=== PATIENT | male | born 1995 | race Caucasian/White ===

== ENCOUNTER 2019-08-26 12:46 | Emergency (ER) | payer BC, OTHER ==
[~2019-08-26] VITALS: Ht 182.9 cm; Wt 79.8 kg
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
--- NOTE | 2019-08-26 12:55 | NUR ---
AT BEDSIDE FOR EVAL.
--- NOTE | 2019-08-26 13:00 | NUR ---
IV LINE ESTABLISHED BLOOD DRAWN AND SENT TO LAB.
[2019-08-26] MEDS ORDERED: LIDOCAINE 1%-EPI 1:100,000 20 ML VIAL ONE (13:01)
[2019-08-26] MEDS ORDERED: FENTANYL PF 100MCG/2ML AMPUL ONE ×2 (13:07→15:17)
--- NOTE | 2019-08-26 13:20 | NUR ---
[employer]PERVIS[employer] AT BEDSIDE FOR XRAY.
[2019-08-26] MEDS ORDERED: FENTANYL PF 100MCG/2ML AMPUL IV ONE ×2 (13:30→16:00)
--- NOTE | 2019-08-26 16:00 | NUR ---
SUTURING DONE BY .
[2019-08-26 16:20] VITALS: BP 122/71
--- NOTE | 2019-08-26 16:20 | NUR ---
Patient discharged to home in stable condition. Written and verbal after care instructions given. Patient verbalizes understanding of instruction. IV removed. Catheter intact and site benign. Pressure and 4x4 applied to site. No bleeding noted.
== END 2019-08-26 16:21 | disposition home or self-care (01) ==
LOC: ER 12:46
DX: S81.811A Laceration without foreign body, right lower leg, initial encounter (principal); F17.200 Nicotine dependence, unspecified, uncomplicated; Z60.2 Problems related to living alone; W01.0XXA Fall on same level from slipping, tripping and stumbling without subsequent striking against object, initial encounter; Y93.39 Activity, other involving climbing, rappelling and jumping off; Y92.34 Swimming pool (public) as the place of occurrence of the external cause; Y99.8 Other external cause status
CPT/HCPCS: 12005; 73590; 73610; 96374; 96376; 99284; A6403; J3010 ×2; J3490

== ENCOUNTER 2020-01-15 13:03 | Emergency (ER) | payer BC, OTHER ==
[~2020-01-15] VITALS: Ht 177.8 cm; Wt 74.8 kg
[2020-01-15] MEDS ORDERED: NALOXONE PREFILLED SYRINGE 2 MG/2 ML SYRINGE ONE (13:17)
[2020-01-15] MEDS ORDERED: NALOXONE HCL 0.4 MG/ML AMPUL ONE ×3 (13:30→14:32)
[2020-01-15] MEDS: NALOXONE HCL 0.4 MG/ML AMPUL IV ONE ×5 (13:42→14:15)
--- NOTE | 2020-01-15 13:43 | NUR ---
[employer] AT BEDSIDE
--- NOTE | 2020-01-15 14:00 | NUR ---
bib ra c/o overdose on xanax and fentanyl. Patient a/ox1, sleepy but arousable to stimuli. Attached to the vehicle monitor technician. Belongings set aside. Iv line established.
--- NOTE | 2020-01-15 14:42 | NUR ---
Patient given a total of 2mg of Narcan in increments x5 mins. After 5th dose patient is arousable to painful stimuli. Vitals stable.
[2020-01-15 15:01] LABS: BASOPHILS % (AUTO) 0.6 % (0.0-2.0); EOSINOPHILS % (AUTO) 2.7 % (0.0-6.0); HEMATOCRIT 41 % (39-51); LYMPHOCYTES # (AUTO) 1.9 /CMM (0.8-4.8); LYMPHOCYTES % (AUTO) 30.3 % (20.0-44.0); MEAN CORPUSCULAR HGB CONC 34 g/dl (31.0-36.0); MEAN CORPUSCULAR VOLUME 92 fL (80-96); MONOCYTES # (AUTO) 0.7 /CMM (0.1-1.30); MONOCYTES % (AUTO) 11.4 % (2.0-12.0); NEUTROPHILS # (AUTO) 3.5 /CMM (1.8-8.9); PLATELET COUNT (AUTO) 210 /CMM (150-450); RED BLOOD CELL COUNT(AUTO) 4.51 MIL/uL (4.5-6.0); WHITE BLOOD COUNT (AUTO) 6.4 K/uL (4.3-11.0)
[2020-01-15] MEDS ORDERED: NALT50TA PO (15:01)
[2020-01-15] MEDS ORDERED: GABA800T11 PO (15:01)
[2020-01-15] MEDS ORDERED: PROP20TA19 PO (15:01)
[2020-01-15 15:18] LABS: CALCIUM, SERUM 8.6 mg/dL (8.5-10.1); CARBON DIOXIDE 27 mmol/L (21-32); CHLORIDE 100 mmol/L (98-107); GLUCOSE 86 mg/dL (74-106); POTASSIUM 3.4 mmol/L (3.5-5.1); SODIUM SERUM 135 mmol/L (136-145); UREA NITROGEN, BLOOD 6 mg/dL (7-18)
[2020-01-15 15:21] LABS: APPEARANCE,URINE CLEAR (CLEAR); BILIRUBIN,URINE NEGATIVE (NEGATIVE); BLOOD, URINE NEGATIVE Ery/uL (NEGATIVE); COLOR,URINE YELLOW (YELLOW); KETONES,URINE NEGATIVE (NEGATIVE); LEUKOCYTE ESTERASE ,URINE NEGATIVE (NEGATIVE); NITRITE, URINE NEGATIVE (NEGATIVE); PROTEIN,URINE NEGATIVE (NEGATIVE); UGLUCOSE NEGATIVE (NEGATIVE); UROBILINOGEN,URINE 0.2 EU/dL (0.2)
[2020-01-15 15:23] LABS: ALANINE AMINOTRANSFERASE 21 U/L (12-78); ALBUMIN 3.9 g/dL (3.4-5.0); ALCOHOL, BLOOD < 3 mg/dL (0-0); ALKALINE PHOSPHATASE 51 U/L (46-116); ASPARTATE AMINOTRANSFERASE 21 U/L (15-37); BILIRUBIN,DIRECT 0.1 mg/dL (0.0-0.2); BILIRUBIN,TOTAL 0.6 mg/dL (0.2-1.0); TOTAL PROTEIN, SERUM 6.9 g/dL (6.4-8.2)
--- NOTE | 2020-01-15 17:13 | NUR ---
PATIENT ASLEEP, EASILY AROUSABLE. NO DISTRESS NOTED. VITALS STABLE.
--- NOTE | 2020-01-15 18:06 | NUR ---
PATIENT WALKED UP TO THE RESTROOM.
[2020-01-15] MEDS ORDERED: ONDANSETRON HCL/PF 4 MG/2 ML VIAL IVP PRN (19:00)
[2020-01-15] MEDS ORDERED: IV D5/0.45 NACL 1,000 ML IV PRN (19:00)
[2020-01-15] MEDS ORDERED: Z GUARD REMEDY 2 OZ OINT TP PRN (19:00)
[2020-01-15] MEDS ORDERED: ACETAMINOPHEN 325 MG TABLET PO PRN (19:00)
[2020-01-15] MEDS ORDERED: MAG HYDROX/AL HYDROX/SIMETH 30 ML UDC PO PRN (19:00)
[2020-01-15] MEDS ORDERED: MAGNESIUM HYDROXIDE 30 ML UDC PO PRN (19:00)
[2020-01-15] MEDS ORDERED: ZOLPIDEM TARTRATE 5 MG TABLET PO PRN (19:00)
[2020-01-15] MEDS ORDERED: HYDROCODONE/APAP 5/325MG TABLET PO PRN (19:00)
--- NOTE | 2020-01-15 19:13 | NUR ---
PT NOTED HYPOTENSIVE, MD AWARE.
--- NOTE | 2020-01-15 19:18 | NUR ---
PATIENT AROUSABLE. NO DISTRESS NOTED. ENDORSED TO ARAMIS LIZ FOR GURJIT.
--- NOTE | 2020-01-15 19:45 | NUR ---
CALLED NURSING SUP FOR TELE BED.
--- NOTE | 2020-01-15 19:53 | NUR ---
CALLED LAB FOR COVID TEST
--- NOTE | 2020-01-16 01:21 | NUR ---
RPatient is resting comfortably in bed with eyes closed. Easily aroused. VSS
--- NOTE | 2020-01-16 04:51 | NUR ---
SPOKE TO PT, PT AWAKE, VSS.
--- NOTE | 2020-01-16 05:35 | NUR ---
Patient discharged to home in stable condition. Written and verbal after care instructions given. Patient verbalizes understanding of instruction. Pt ambulated out of E.D. VSS. AAOX4.
--- NOTE | 2020-01-16 05:35 | NUR ---
IV removed. Catheter intact and site benign. Pressure and 4x4 applied to site. No bleeding noted.
[2020-01-16 05:36] VITALS: BP 109/68
== END 2020-01-16 05:53 | disposition home or self-care (01) ==
LOC: ER 13:12
DX: T42.4X1A Poisoning by benzodiazepines, accidental (unintentional), initial encounter (principal); T40.411A Poisoning by fentanyl or fentanyl analogs, accidental (unintentional), initial encounter; F12.10 Cannabis abuse, uncomplicated; F11.10 Opioid abuse, uncomplicated; F15.10 Other stimulant abuse, uncomplicated; R41.0 Disorientation, unspecified; Z60.2 Problems related to living alone; Y92.89 Other specified places as the place of occurrence of the external cause
CPT/HCPCS: 36415; 80048; 80076; 80299; 80307; 80320; 81001; 85025; 87081; 96374; 96376; 99285; J2310 ×3; 81000-TC; G0480